=== PATIENT | male | born 1985 | race Caucasian/White ===

== ENCOUNTER 2023-05-23 15:45 | Outpatient (CLI) | payer BC, SELFPAY ==
[2023-05-23 16:41] LABS: Basophils Percent Auto 0.5 % (0.2-1.2); Eosinophils Absolute Auto 0.2 K/mm3 (0-0.3); Eosinophils Percent Auto 2.3 % (0-4.4); Hematocrit 44.2 % (42.0-52.0); Hemoglobin 14.8 g/dL (14.0-18.0); Immature Granulocyte Absolute 0.08 K/mm3 (0.00-0.031); Lymphocytes Absolute Auto 1.73 K/mm3 (0.9-3.2); Lymphocytes Percent Auto 21.3 % (18.3-44.2); Mean Corpuscular HGB Conc 33.5 g/dl (32-36); Mean Corpuscular Hemoglobin 30.3 pg (26-34); Mean Corpuscular Volume 90.6 fl (80-100); Mean Platelet Volume 11.1 fl (7.4-10.4); Monocytes Absolute Auto 0.5 K/mm3 (0.1-0.6); Monocytes Percent Auto 6.2 % (2.6-8.5); Neutrophils Absolute Auto 5.6 K/mm3 (1.3-6.7); Neutrophils Percent Auto 68.7 % (45.5-73.1); Platelet Count Result 230 k/mm3 (150-375); Red Blood Count 4.88 M/mm3 (4.6-6.20); Red Cell Distribution Width 12.8 % (11.5-14.5); White Blood Count 8.1 K/mm3 (4.5-10.0)
[2023-05-23 16:57] LABS: Alanine Aminotransferase 31 U/L (6-50); Albumin Level 4.6 g/dL (3.5-5.1); Alkaline Phosphatase 72 U/L (38-126); Anion Gap 9 mmol/L (8-16); Aspartate Amino Transferase 29 U/L (17-59); Bilirubin,Total 0.7 mg/dL (0.2-1.3); Blood Urea Nitrogen 15 mg/dL (9-20); Calcium 8.9 mg/dL (8.4-10.2); Carbon Dioxide 27 mmol/L (22-30); Chloride 101 mmol/L (98-107); Cholesterol 169 mg/dL (0-200); Estimated Glomerular Filt Rate > 60; Glucose 89 mg/dL (65-110); HDL Direct 43 mg/dL; Magnesium 1.9 mg/dL (1.6-2.3); Potassium 3.7 mmol/L (3.4-5.0); Sodium 137 mmol/L (137-145); Triglycerides 246 mg/dL (<150)
[2023-05-23 17:20] LABS: Hemoglobin A1C 4.7 % (<5.7)
[2023-05-23 17:32] LABS: LDL Cholesterol Direct 96 mg/dL
== END 2023-05-23 15:46 | disposition home or self-care (01) ==
LOC: ANHLAB 15:47
PROVIDERS: PCP Family Medicine; Visit Provider Internal Medicine Cardiovascular Disease
DX: I47.10 Supraventricular tachycardia, unspecified (principal)
CPT/HCPCS: 36415; 80053; 80061; 83036; 83735; 84443; 85025

== ENCOUNTER 2023-07-30 11:58 | Emergency (ER) | payer BC, SELFPAY ==
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
[2023-07-30 12:17] VITALS: BP 141/98; PULSE 105; RESP 18; TEMP 37.6; O2SAT 99
--- NOTE | 2023-07-30 12:28 | ED.DENTAL ---
HPI - Dental/Oral General Chief complaint: Dental/Oral Stated complaint: Face Jaw Pain Time Seen by Provider: 07/30/23 13:17 Mode of arrival: ambulatory Limitations: no limitations History of Present Illness HPI Narrative: 37-year-old male presents with concern for right jaw pain. Reports 2 days ago he was playing ball with his son when he tried to catch the ball between his face in his shoulders, reports then since then he has had pain in his right jaw, tenderness, swelling. Reports it hurts to open his mouth. He reports it feels like his lip is moving the wrong way when he tries to open his mouth. He reports he has taken ibuprofen without relief. He denies painful swallowing, dental pain. MD Complaint: tooth pain Related Data Home Medications Medication Instructions Recorded Confirmed omeprazole 40 mg capsule,delayed 40 mg PO DAILY 09/30/22 07/30/23 release Allergies Allergy/AdvReac Type Severity Reaction Status Date / Time No Known Allergies Allergy Verified 07/30/23 12:16 Review of Systems Review of Systems: CONSTITUTIONAL: Denies malaise, chills, sweats, or fever. EYES: Denies visual changes ENT: Denies rhinorrhea, congestion, sinus pain, otalgia or sore throat. Reports right jaw pain and swelling and tenderness CARDIOVASCULAR: Denies chest pain, palpitations RESPIRATORY: Denies cough or dyspnea. SKIN: Denies rash or itching. MUSCULOSKELETAL: Denies myalgia. NEUROLOGIC: Denies numbness, weakness, or headache. All systems reviewed & are unremarkable except as noted in HPI and below PMFSH Past Medical History Medical History Migraine Surgical History Surgical History H/O elbow surgery History of hernia surgery History of hip surgery Family History Family History Other Hypertension Social History Social History Smoking status: Former smoker Second hand tobacco smoke exposure: No Smoking end date: 08/04/21 Alcohol intake: current Alcohol use details: whiskey, bourbon, beer........1-10 drinks per week. 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 Gender identity (if verbalized by the patient): Male Sexual Orientation (if Verbalized by the Patient): Straight or Heterosexual Spiritual care concerns: No Agree to blood products: Yes Comments At time of signature, agree with nursing past medical, surgical, social and family history. There is no relevant family history pertinent to the presenting complaint Exam Narrative: GENERAL: Well-appearing, well-nourished, and in no acute distress. HEAD: Normocephalic, atraumatic. EYES: PERRLA, sclera clear ENT: Nares clear, turbinates pink, no rhinorrhea or epistaxis. Mucous membranes moist. TM pearly elam with sharp light reflex bilaterally; no tragal tenderness. Oropharynx without erythema or lesions. Tonsils not enlarged and without exudate. No missing teeth, broken teeth, caries. Right-sided jaw tenderness, mild edema noted, without erythema, warmth, ecchymosis, open skin NECK: Supple. No lymphadenopathy. CHEST: No respiratory distress. Speaks in full sentences. HEART: Regular rate and rhythm. SKIN: Warm, dry, no visible rash. NEURO: Alert and oriented x3. PSYCH: Normal mood and affect Course Course Emergency Course: Patie
== END 2023-07-30 14:08 | disposition home or self-care (01) ==
PROVIDERS: Emergency Provider Nurse Practitioner; PCP Family Medicine
DX: R68.84 Jaw pain (principal); Z87.891 Personal history of nicotine dependence
CPT/HCPCS: 70110; 99213; G0463

== ENCOUNTER 2024-09-20 12:33 | Observation (INO) | payer BC, SELFPAY ==
--- NOTE | ~2024-09-20 | XR_ITS ---
EXAMINATION: XR chest 2V DATE: 09/20/2024 13:29 INDICATION: Chest pain. TECHNIQUE: Frontal and lateral views of the chest were obtained. COMPARISON: None. FINDINGS: There is no pneumonia, pleural effusion, or pneumothorax. The heart size is normal. IMPRESSION: 1. No acute cardiopulmonary disease. Reviewed, dictated and finalized at location A. [facility]
--- NOTE | ~2024-09-20 | US_ITS ---
Procedure: Duplex Doppler examination of the bilateral carotids. Indication: Syncope Technique: Real time, color-flow and pulse wave Doppler examination of the bilateral carotids was performed. Findings: Cui scale ultrasonography of the right neck demonstrated no significant plaque. There was demonstrat ion of normal color-flow and Doppler waveforms within the right common, internal and external carotid arteries. The peak systolic velocities in the right common, internal and external carotid arteries w ere demonstrated to be 78 cm/sec, 97 cm/sec and 125 cm/sec respectively. The right ICA/CCA ratio was 1.2.The proximal right internal carotid artery demonstrates 0% stenosis relative to the normal distal artery lumen diameter. Cui scale sonography of the left neck demonstrated no significant plaque. There was demonstration of normal color-flow and wave forms within the left common, internal and external carotid arteries. The peak systolic velocities in the left common, internal and external carotid arteries were demonstrate d to be 150cm/sec, 88 cm/sec and 108 cm/sec respectively. The left ICA/CCA ratio was 0.9. The proxima l left internal carotid artery demonstrates 0% stenosis relative to the normal distal artery lumen di ameter. There was antegrade flow demonstrated in the bilateral vertebral arteries. Impression: No hemodynamically significant stenosis of the bilateral internal carotid arteries. Antegrade flow in the bilateral vertebral arteries. Note: The methodology used is an indirect measurement validated against a direct method (such as the NASCET criteria) that compares diameters at the stenosis to the distal ICA. Reviewed, dictated and finalized at location . RAL FREIGHT AGENT Impression: No hemodynamically significant stenosis of the bilateral internal carotid arter ies. Antegrade flow in the bilateral vertebral arteries. Note: The methodology used is an indirect measurement validated against a direct meth od (such as the NASCET criteria) that compares diameters at the stenosis to the distal ICA.
--- NOTE | ~2024-09-20 | CT_ITS ---
EXAMINATION: CT brain wo con DATE: 09/20/2024 15:00 INDICATION: Headache, lightheadedness and near syncope TECHNIQUE: Computed tomography (CT) of the head was performed without intravenous contrast. Sagittal and coronal reconstructions were performed. The mA was adjusted according to patient size. Iterative reconstruction technique was employed. The dose-length product was 605.33 mGy-cm. COMPARISON: None FINDINGS: No acute intracranial hemorrhage, acute infarction or abnormal extra axial fluid collection. Ventricl es are normal and symmetric. No mass/mass effect. The orbits, paranasal sinuses and mastoid air cells are normal. IMPRESSION: 1. Normal head CT. Reviewed, dictated and finalized at location A. AINER MAKER IMPRESSION: 1. Normal head CT.
--- NOTE | ~2024-09-20 | CT_ITS ---
EXAMINATION: CTA chest DATE: 09/20/2024 17:20 INDICATION: chest pain TECHNIQUE: Computed tomography angiography of the chest was performed with 100 mL Omnipaque-350 intra venous contrast in the arterial phase. Automated exposure control and iterative reconstruction techni que were employed. The dose-length product was 921.97 mGy-cm. COMPARISON: X-ray chest, same date. FINDINGS: CHEST: Thoracic aorta: No significant dilation or calcification. Lung parenchyma and airways: Lungs and airways are clear. Thoracic inlet, axillae and chest wall: No thyroid or soft tissue mass. No axillary lymphadenopathy. Mediastinum: No mass or lymphadenopathy. Heart and pericardium: Normal heart size. No pericardial effusion. Coronary artery calcifications: Absent. Pleura: No effusion or mass. Upper abdomen: No significant finding. Thoracic bones: No acute osseous finding in the chest. IMPRESSION: No acute thoracic process detected. Reviewed, dictated and finalized at location K. LY MANAGER
--- NOTE | ~2024-09-20 | NM_ITS ---
EXAMINATION: NM gerber stress w perfusion DATE: 09/21/2024 11:13 INDICATION: Chest pain. TECHNIQUE: Rest images were obtained following intravenous administration of 10.6 mCi Tc99m tetrofosm in (Myoview). The patient was infused intravenously with Lexiscan (regadenoson). Then, 34.6 mCi Tc99m tetrofosmin (Myoview) was administered intravenously, and stress images were obtained. Data was teresita nstructed into short axis and horizontal and vertical long axis SPECT images. Gated SPECT images were also obtained. COMPARISON: Chest CT 09/20/2024 FINDINGS: There is no definite reversible or fixed perfusion abnormality to suggest ischemia or infar ction. There is no segmental wall motion abnormality. Left ventricular ejection fraction measures 4 7%. IMPRESSION: 1. No definite ischemia or infarct. 2. Left ventricular ejection fraction measuring 47%. Reviewed, dictated and finalized at location A. [facility]
[2024-09-20 12:39] VITALS: BP 194/114; PULSE 116; RESP 15; TEMP 36.6; O2SAT 99
--- NOTE | 2024-09-20 12:47 | ECG_ITS ---
Test Date: 2024-09-20 12:50:06 Measurements Intervals [place] Rate: 117 P: 56 MO: 145 QRS: 41 QRSD: 104 T: 36 QT: 338 QTc: 473 Interpretive Statements SINUS TACHYCARDIA DELAYED PRECORDIAL R/S TRANSITION BASELINE ARTIFACT- I, II, III, AVL, AVF ABNORMAL ECG No previous ECG available for comparison Electronically Signed On 09-20-2024 13:02:01 TECHNICAL IMPLEMENTATION LEAD by Sal Kline D.O.
[2024-09-20 13:00] LABS: Basophils Percent Auto 0.4 % (0.2-1.2); Eosinophils Absolute Auto 0.1 K/mm3 (0-0.3); Hematocrit 47.6 % (42.0-52.0); Hemoglobin 16.2 g/dL (14.0-18.0); Immature Granulocyte Absolute 0.05 K/mm3 (0.00-0.031); Immature Granulocyte Percent A 0.7 % (0-0.5); Lymphocytes Percent Auto 27.5 % (18.3-44.2); Mean Corpuscular Hemoglobin 29.8 pg (26-34); Mean Corpuscular Volume 87.5 fl (80-100); Mean Platelet Volume 10.5 fl (7.4-10.4); Monocytes Absolute Auto 0.3 K/mm3 (0.1-0.6); Monocytes Percent Auto 4.6 % (2.6-8.5); Neutrophils Absolute Auto 4.6 K/mm3 (1.3-6.7); Neutrophils Percent Auto 65.8 % (45.5-73.1); Platelet Count Result 271 k/mm3 (150-375); Red Blood Count 5.44 M/mm3 (4.6-6.20); Red Cell Distribution Width 12.9 % (11.5-14.5); White Blood Count 6.9 K/mm3 (4.5-10.0)
[2024-09-20 13:10] LABS: Alanine Aminotransferase 45 U/L (6-50); Albumin Level 4.7 g/dL (3.5-5.1); Alkaline Phosphatase 97 U/L (38-126); Anion Gap 12 mmol/L (4-12); Aspartate Amino Transferase 33 U/L (17-59); Bilirubin,Total 0.8 mg/dL (0.2-1.3); Blood Urea Nitrogen 12 mg/dL (9-20); Calcium 9.7 mg/dL (8.4-10.2); Carbon Dioxide 26 mmol/L (22-30); Chloride 103 mmol/L (98-107); Estimated CRCL calculation 141 ml/min; Estimated Glomerular Filt Rate > 60; Glucose 142 mg/dL (65-110); Lipase 139 U/L (23-300); Potassium 4.4 mmol/L (3.4-5.0); Sodium 141 mmol/L (137-145)
[2024-09-20 13:14] LABS: Partial Thromboplastin Time 24.4 Seconds (22.3-36.8)
[2024-09-20 13:22] LABS: Troponin I < 0.012 ng/mL (0.000-0.034)
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
[2024-09-20 14:24] VITALS: BP 160/116; PULSE 96; RESP 15; O2SAT 98
--- OUTSIDE RECORDS SUMMARY | 2024-09-20 14:59 | XMS_ITS | Referral Summary ---
Author Organization [facility] Address [address] [place] [id number] Care Team Providers Care Talent Management Specialist Name Role Phone Lisbeth Banegas MD Primary Care Provider [phone] Sal Kline DO Unavailable [phone] Allergies No known active allergies Medications multivitamin-Ca -iron-minerals 18-0.4 mg tablet Take by mouth Active metoprolol tartrate (LOPRESSOR) 25 mg immediate release tablet Take 1 tablet (25 mg total) by mouth once Active omeprazole (PriLOSEC) 20 mg capsule Take 2 capsules (40 mg total) by mouth daily Active traMADoL (ULTRAM) 50 mg tablet Take 1 tablet (50 mg total) by mouth every 8 (eight) hours as needed for pain 20 tablet 01/17/2023 Active Active Problems No known active problems Social History Tobacco Use Types Packs/Day Years Used Date Smoking Tobacco: Never Smokeless Tobacco: Never Tobacco Cessation:Counseling Given: Not Answered AUDIT-C Answer Date Recorded Q1: How often do you have a drink containing alcohol? 4 or more times a week 01/17/2023 Q2: How many drinks containi ng alcohol do you have on a typical day when you are drinking? 5 or 6 Q3: How often do you have si x or more drinks on one occasion? Weekly 01/17/2023 Personal Safety Answer Date Recorded Have you ever been in or are you currently in a harmful physical or emotional relationship or is someone making you feel afraid or unsafe? 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 Gender Identity Not on file Sexual Orientation Not on file Last Filed Vital Signs Vital Sign Reading Time Taken Comments Blood Pressure 131/81 01/17/2023 9:30 AM CDT Pulse 73 01/17/2023 9:30 AM CDT Temperature 36.5 C (97.7 F) 01/17/2023 9:00 AM CDT Respiratory Rate 16 01/17/2023 9:30 AM CDT Oxygen Saturation 95% 01/17/2023 9:30 AM CDT Inhaled Oxygen Concentration - - Weight 107.1 kg (236 lb 1.6 oz) 01/17/2023 6:16 AM CDT Height 188 cm (6' 2 ) 01/17/2023 6:16 AM CDT Body Mass Index 30.31 01/17/2023 6:16 AM CDT Plan of Treatment Not on file Medical Devices Implanted Type Area Coat Maker Device Identifier Shelf Expiration Date Model / Serial / Lot [employer] Ventralex St Sepra Sorbaflex 1.7in [facility] Bioresorbable [id number] - [id number] Implanted:Qty: 1 on 01/17/2023 by Manpreet Darling MD at [facility] [employer] [id number] 02/29/2024 [id number] / / [id number] Insurance [facility] [employer] [facility] Care Teams Talent Management Specialist Relationship Specialty Start Date End Date Lisbeth Banegas MD PCP - General Family Medicine 10/08/22 Sal Kline DO [address] [place] [address] Referring Physician Cardiology 01/17/23
--- OUTSIDE RECORDS SUMMARY | 2024-09-20 14:59 | XMS_ITS | Clinical Summary ---
Author Organization [facility] Address [address] [place] [id number] Care Team Providers Care Tire Builder Heavy Service Name Role Phone Lisbeth Banegas MD Primary Care Provider [phone] Sal Kline DO Unavailable [phone] Allergies No known active allergies Medications multivitamin-Ca [...] Active Active Problems No known active problems Surgical History Surgery Date Site/Laterality Comments HERNIA REPAIR ELBOW SURGERY 08/04/2015 - 08/03/2016 Left HIP SURGERY Left APPENDECTOMY Medical History Medical History Date Comments GERD (gastroesophageal reflux disease) Hypertension Family History Medical History Relation Name Comments Heart disease Father Relation Name Status Comments Father Social History Tobacco Use Types Packs/Day Years [...] on file 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 Gender Identity Not on file Sexual Orientation Not on file Obstetrics History Last Filed Vital Signs Vital Sign Reading [...] 01/17/2023 6:16 AM CDT Plan of Treatment Health Maintenance Due Date Last Done Comments Depression Screening 1985 Hepatitis C Screening 1985 DTaP/Tdap/Td Vaccine (1 - Tdap) 1996 Varicella Vaccines (1 of 2 - 13+ 2-dose series) 1998 Hepatitis B Screening 2003 Regular Well Visit/Exam 18-64 2003 Influenza Vaccine (#1) 2024 HPV Vaccines Aged Out No longer eligi ble based on patient's age to complete this topic Pneumococcal vaccine <65 Aged Out No longer eligible based on patient's age to complete this topic Medical Devices Implanted Type Area Commercial Installer Device Identifier Shelf Expiration Date Model / Serial / Lot [employer] Ventralex St Sepra Sorbaflex 1.7in [place] [employer] Bio[employer]orbable [id number] - [id number] Implanted:Qty: 1 on 01/17/2023 by Manpreet Darling MD at [facility] [employer] [id number] 02/29/2024 [id number] / / [id number] Insurance Intern [place] CHOICE IN Intern [place] CHOICE IN Care Teams Tire Builder Heavy Service Relationship Specialty Start Date End Date Lisbeth Banegas MD PCP - General Family Medicine 10/08/22 Sal Kline DO [address] [facility] [address] [place] [address] Referring Physician Cardiology 01/17/23
--- OUTSIDE RECORDS SUMMARY | 2024-09-20 14:59 | XMS_ITS | Clinical Summary ---
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 09/08/2024 10:25 AM SAND BUFFER Ancillary Procedure [facility] [address] [place] [address] Yung Wray MD 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 from Last 3 Months Social History Tobacco Use Types Packs/Day Years Used Date Smoking Tobacco: Never Assessed Sex and Gender Information Value Date Recorded Sex Assigned at Not on file Legal Sex Male 12:23 PM CDT Gender Identity Not on file Sexual Orientation Not on file Plan of Treatment Health Maintenance Due Date Last Done Comments Pre-Diabetes and Diabetes Screening 1985 INFLUENZA VACCINE (#1) 2024 09/22/2007 DTAP/TDAP/TD VACCINES (2 - Td or Tdap) 03/30/2025 03/30/2015 HEPATITIS B VACCINES Completed 07/11/2006, 10/29/2005, 07/11/2004, Additional history exists HPV VACCINES Aged Out No longer eligi ble based on patient's age to complete this topic Procedures Procedure Name Priority Date/Time Associated Diagnosis Comments XR HAND 2 VW LEFT Routine 09/08/2024 11: 33 AM SAND BUFFER 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 FINDINGS: No fracture, dislocation, or other osseous abnormalities are present. The bone texture and density are normal. The articular surfaces are smooth. No lytic or blastic lesions are demonstrated. 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 FINDINGS: No fracture, dislocation, or other osseous abnormalities are present. The bone texture and density are normal. The articular surfaces are smooth. No lytic or blastic lesions are demonstrated. 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 FINDINGS: No fracture, dislocation, or other osseous abnormalities are present. The bone texture and density are normal. The articular surfaces are smooth. No lytic or blastic lesions are demonstrated. 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 FINDINGS: No fracture, dislocation, or other osseous abnormalities are present. The bone texture and density are normal. The articular surfaces are smooth. No lytic or blastic lesions are demonstrated. IMPRESSION: No acute osseous abnormality us Yugn Wray MD DIAGNOSTIC IMAGING ORDERABLES F inal Result from Last 3 Months Insurance [employer]
[2024-09-20 15:19] LABS: Magnesium 2.1 mg/dL (1.6-2.3)
[2024-09-20 15:26] LABS: D Dimer < 0.27 ug/mL (<0.48)
--- NOTE | 2024-09-20 15:58 | PC.NURSE ---
Pt. reports resolution of symptoms.
--- NOTE | 2024-09-20 16:00 | ECG_ITS ---
Test Date: 2024-09-20 16:09:29 Measurements Intervals Ball Rate: 97 P: 33 MD: 148 QRS: 18 QRSD: 101 T: 1 QT: 339 QTc: 431 Interpretive Statements SINUS RHYTHM DELAYED PRECORDIAL R/S TRANSITION BORDERLINE ST-T WAVE ABNORMALITY- INFERIOR LEADS BASELINE ARTIFACT- I, III, AVL BORDERLINE ECG Compared to ECG 09/20/2024 12:50:06 HEART RATE HAS DECREASED Electronically Signed On 09-20-2024 16:20:32 APPLIQUER ZIGZAG by Sal Kline D.O.
--- NOTE | 2024-09-20 16:07 | PC.NURSE ---
Pt. given 324mg aspirin. Unable to chart in OCT d/t chart stating Dr. Milton is in pt. chart, yet states he is out of the chart.
[2024-09-20 17:00] VITALS: BP 155/88; PULSE 85; RESP 18; O2SAT 98
--- NOTE | 2024-09-20 17:23 | PC.NURSE ---
Lab called d/t pt. troponin pending for 2 hours. Lab reports that it was a mistake on their end and should be resulting soon.
[2024-09-20 17:24] LABS: Troponin I < 0.012 ng/mL (0.000-0.034)
--- OUTSIDE RECORDS SUMMARY | 2024-09-20 17:30 | XMS_ITS | Clinical Summary ---
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 Gender Identity Not on file Sexual Orientation [...] this topic Medical Devices Implanted Type Area Career Coach Device Identifier Shelf Expiration Date Model / Serial / Lot [employer]/C R Bard Ventralex St Sepra Sorbaflex 1.7in Totz Open Bioresorbable [id number] - [id number] Implanted:Qty: 1 on 01/17/2023 by Manpreet Darling MD at [facility] [employer] [id number] 02/29/2024 [id number] / / [id number] Insurance [employer] [place] [employer] [place] Care Teams Restaurant And Bar Manager Relationship Specialty Start Date End Date Lisbeth Banegas MD PCP - General Family Medicine 10/08/22 Sal Kline DO [address] [facility] [address] [place] [address] Referring Physician Cardiology 01/17/23
--- OUTSIDE RECORDS SUMMARY | 2024-09-20 17:30 | XMS_ITS | Referral Summary ---
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 Gender Identity Not on file Sexual Orientation [...] on file Medical Devices Implanted Type Area Piledriver Carpenter Device Identifier Shelf Expiration Date Model / Serial / Lot [employer] R [employer] Ventralex St Sepra Sorbaflex 1.7in [facility] Bioresorbable [id number] - [id number] Implanted:Qty: 1 on 01/17/2023 by Manpreet Darling MD at [facility] [employer] [id number] 02/29/2024 [id number] / / [id number] Insurance [facility] [employer] [facility] Care Teams Aircraft Accessories Mechanic Relationship Specialty Start Date End Date Lisbeth Banegas MD PCP - General Family Medicine 10/08/22 Sal Kline DO [address] [facility] [address] [place] [address] Referring Physician Cardiology 01/17/23
--- OUTSIDE RECORDS SUMMARY | 2024-09-20 17:30 | XMS_ITS | Clinical Summary ---
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 09/08/2024 10:25 AM SALVAGER HELPER Ancillary Procedure [facility] [address] [place] [address] Yung Wray MD Degenerative joint disease involving [...] VW LEFT Routine 09/08/2024 11: 33 AM SALVAGER HELPER 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 XR HAND 2 VW RIGHT Routine 09/08/2024 11 :33 AM SALVAGER HELPER 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 from Last 3 Months Results * XR HAND 2 VW LEFT (09/08/2024 11:33 AM SALVAGER HELPER) Anatomical Region Laterality Modality Wrist / Hand Computed Radiogr aphy 09/08/2024 11:3 3 AM SALVAGER HELPER Impressions 09/08/2024 11:40 AM SALVAGER HELPER IMPRESSION: No acute osseous abnormality Narrative 09/08/2024 11:40 AM SALVAGER HELPER EXAM: XR HAND 2 VW LEFT DATE: [...] HAND 2 VW RIGHT (09/08/2024 11:33 AM SALVAGER HELPER) Anatomical Region Laterality Modality Wrist / Hand Computed Radiogr aphy 09/08/2024 11:3 3 AM SALVAGER HELPER Impressions 09/08/2024 11:39 AM SALVAGER HELPER IMPRESSION: No acute osseous abnormality Narrative 09/08/2024 11:39 AM SALVAGER HELPER EXAM: XR HAND 2 VW RIGHT DATE: [...]
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
--- NOTE | 2024-09-20 19:25 | ECG_ITS ---
Test Date: 2024-09-20 19:29:45 Measurements Intervals Tichnor Rate: 77 P: 41 MS: 154 QRS: 20 QRSD: 116 T: 17 QT: 382 QTc: 435 Interpretive Statements SINUS RHYTHM INTRAVENTRICULAR CONDUCTION DELAY NONSPECIFIC ST-T WAVE ABNORMALITY- INFERIOR LEADS BORDERLINE ECG Compared to ECG 09/20/2024 16:09:29 NO SIGNIFICANT CHANGE Electronically Signed On 09-20-2024 19:31:34 LABORER CHEESEMAKING by Sal Kline D.O.
[2024-09-20 20:00] LABS: Troponin I < 0.012 ng/mL (0.000-0.034)
[2024-09-20 21:30] VITALS: BP 138/80; PULSE 70; RESP 16; O2SAT 98
[2024-09-21] VITALS (9 sets, daily range): BP systolic 134–151; BP diastolic 76–95; PULSE 58–80; RESP 12–16; TEMP 36.4–36.7; O2SAT 94–100; BMI 32.6
--- NOTE | 2024-09-21 | ECHO_ITS ---
Patient Info Name: Royce Paniagua Age: 39 years : 1985 Gender: Male Ht: 74 in Wt: 253 lbs BSA: 2.48 m2 HR: 65 bpm BP: 134 / 76 mmHg Heart Rhythm: Sinus Rhythm Technical Quality: Good Exam Date: 09/21/2024 7:18 AM Exam Location: Echo Lab Patient Status: Inpatient Admit Date: 09/20/2024 Staff Ordering Physician: Sal Kline DO Captain/Check Airman: Ame Trejo RDCS Attending Provider: Evangelista Fritz MD Referring Physician: Eliud ROLDAN; Exam Type: CA echo doppler color flow Study Info Indications - PSVT Complete two-dimensional, color flow and Doppler transthoracic echocardiogram is performed. Summary 1. Complete two-dimensional, color flow and Doppler transthoracic echocardiogram is performed. 2. Left ventricular chamber dimension is mildly enlarged. 3. Left ventricular systolic function is normal, estimated at 60-65%. 4. The left ventricular diastolic function is grade II diastolic dysfunction. 5. E/e' 9 is minimally elevated. 6. Left atrial chamber dimension is mildly enlarged. Left Ventricle E/e' 9 is minimally elevated. Left ventricular chamber dimension is mildly enlarged. Left ventricular systolic function is normal, estimated at 60-65%. The left ventricular diastolic function is grade II diastolic dysfunction. Right Ventricle Right ventricular systolic function is normal and with normal TAPSE 1.9 cm. Right ventricular chamber dimension is normal. Left Atria Left atrial chamber dimension is mildly enlarged. Right Atria Right atrial chamber dimension is normal. Aortic Valve The aortic valve is trileaflet. There is no aortic valve stenosis. There is no aortic valve regurgitation. Pulmonic Valve There is no pulmonic regurgitation. Mitral Valve There is no mitral valve stenosis. There is no mitral valve regurgitation. Tricuspid Valve There is no tricuspid valve regurgitation. Pericardium/Pleural There is no pericardial effusion. Inferior Vena Cava Normal inferior vena cava with >50% collapse upon inspiration consistent with normal right atrial pressure, 5 mmHg. Aorta The aortic root size at the sinus of Valsalva is normal. Left Ventricular Outflow Tract Name Value Normal LVOT 2D LVOT Diameter 2.0 cm LVOT Doppler LVOT Peak Gradient 4 mmHg LVOT Mean Gradient 2 mmHg LVOT VTI 16 cm LVOT VTI/AV VTI Ratio 0.8 LVOT Stroke Volume 49 ml LVOT CO 4.0 l/min LVOT CI 1.6 l/min/m2 Pulmonic Valve Name Value Normal RVOT Doppler RVOT Peak Gradient 2 mmHg PV Doppler PV Peak Gradient 4 mmHg Mitral Valve Name Value Normal MV Doppler MV Decel Delta 416 cm/s2 MV PHT 50 ms MV Area (PHT) 4.4 cm2 4.0-5.0 MV Diastolic Function MV E Peak Velocity 71 cm/s MV A Peak Velocity 53 cm/s MV E/A 1.3 MV Decel Time 171 ms MV Annular TDI MV E/e' (Septal) 11.5 <=8.0 MV E/e' (Lateral) 8.0 <=8.0 MV E/e' (Average) 9.8 Tricuspid Valve Name Value Normal Estimated PAP/RSVP RA Pressure 5 mmHg <=5 Aorta Name Value Normal Ascending Aorta Ao Root Diameter (MM) 3.6 cm Ao Root Diam Index (MM) 1.4 cm/m2 Aortic Valve Name Value Normal AV Doppler AV Peak Velocity 113 cm/s AV Peak Gradient 5 mmHg AV Mean Gradient 3 mmHg AV VTI 20 cm AV Area (Cont Eq VTI) 2.4 cm2 >=3.0 AV Area (Cont Eq Scott) 2.6 cm2 AV Regurgitation 2D LVOT Area 3.1 cm2 Ventricles Name Value Normal LV Dimensions 2D/MM IVS Diastolic Thickness (2D) 0.8 cm 0.6-1.0 LVID Diastole (2D) 5.7 cm 4.2-5.8 LVIW Diastolic Thickness (2D) 0.8 cm 0.6-1.0 LVID Systole (2D) 3.6 cm 2.5-4.0 LVOT Diameter 2.0 cm LV Mass (2D Cubed) 165.64 g 88.00-224.00 LV Mass Index (2D Cubed) 67 g/m2 49-115 Relative Wall Thickness (2D) 0.28 LV Fractional Shortening/Ejection Fraction 2D/MM LV Fractional Shortening (2D) 36 % 25-43 LV EF (2D Teicholz) 65 % 52-72 LV Diastolic Volume (4C MOD) 121 ml LV EF (4C MOD) 65 % LV Diastolic Volume (2C MOD) 83 ml LV EF (2C MOD) 63 % LV Diastolic Volume (BP MOD) 101 ml 62-150 LV Diastolic Volume Index (BP MOD) 41 ml/m2 34-74 LV Systolic Volume (BP MOD) 36 ml 21-61 LV Systolic Volume Index (BP MOD) 15 ml/m2 11-31 LV EF (BP MOD) 64 % 52-72 LV Diastolic Length (4C) 8.0 cm LV Systolic Length (4C) 6.3 cm LV Stroke Volume (4C MOD) 80 ml Atria Name Value Normal LA Dimensions LA Dimension (MM) 5.4 cm 3.0-4.1 LA Volume (4C A-L) 61 ml LA Volume (BP A-L) 57 ml RA Dimensions RA Area (4C) 14.0 cm2 <=18.0 Report Signatures
--- NOTE | 2024-09-21 01:07 | ADMGEN ---
This patient, Royce Paniagua, was admitted to IMU Room 206-01. Patient/family oriented to hospital policies and general routines including ID bracelet, bed and alarms, visiting hours, pain management, procedures, bathroom and other care routines, personal items, smoking policy, room service/diet, and visiting hours. Information on how to activate the Rapid Response Team has been discussed. Patient/Family are encouraged to report perceived risks to care and to ask questions if they do not understand what they are told or what they should do.
[2024-09-21 05:34] LABS: Anion Gap 13 mmol/L (4-12); Blood Urea Nitrogen 16 mg/dL (9-20); Calcium 9.4 mg/dL (8.4-10.2); Carbon Dioxide 25 mmol/L (22-30); Chloride 103 mmol/L (98-107); Cholesterol 169 mg/dL (0-200); Estimated CRCL calculation 157 ml/min; Estimated Glomerular Filt Rate > 60; Glucose 106 mg/dL (65-110); HDL Direct 35 mg/dL; Magnesium 2.1 mg/dL (1.6-2.3); Potassium 4.2 mmol/L (3.4-5.0); Sodium 141 mmol/L (137-145); Triglycerides 411 mg/dL (<150)
[2024-09-21 05:44] LABS: LDL Cholesterol Direct 64 mg/dL
[2024-09-21 06:53] LABS: Free T4 Free Thyroxine Reflex 0.94 ng/dL (0.78-2.19)
[2024-09-21 07:44] LABS: Total Triiodothyronine (T3) 1.48 NG/ML (0.97-1.69)
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
--- NOTE | 2024-09-21 08:00 | EST_ITS ---
Patient Info Name: Royce Paniagua Age: 39 years : 1985 Gender: Male Ht: 74 in Wt: 253 lbs BSA: 2.48 m2 HR: 70 bpm BP: 147 / 96 mmHg Exam Date: 09/21/2024 10:01 AM Exam Location: Echo Lab Patient Status: Inpatient Admit Date: 09/20/2024 Staff Ordering Physician: Sal Kline DO Attending Provider: Evangelista Fritz MD Exercise Technologist: Ame Trejo RDCS Exercise Physician: Sal Kline DO Exam Type: CA stress gerber w NM Study Info A regadenoson stress test was performed. Summary 1. 1. Negative lexiscan stress test for ischemic ST changes by ECG criteria. 2. 2. Baseline hypertension. 3. 3. Nuclear scan to follow and will be reported separately. Please correlate with it. 4. 4. Patient informed of the above results. Protocol: Lexiscan Stress ECG Details Stage: REST Duration (min): 1 min : 9 sec HR (bpm): 72 SBP (mmHg): 147 DBP (mmHg): 96 Stage: REST Duration (min): 6 min : 1 sec HR (bpm): 82 SBP (mmHg): 147 DBP (mmHg): 96 Stage: STAGE 1 Duration (min): 1 min : 0 sec HR (bpm): 141 SBP (mmHg): 162 DBP (mmHg): 101 Stage: RECOVERY Duration (min): 1 min : 0 sec HR (bpm): 113 SBP (mmHg): 162 DBP (mmHg): 101 Stage: RECOVERY Duration (min): 2 min : 0 sec HR (bpm): 101 SBP (mmHg): 162 DBP (mmHg): 101 Stage: RECOVERY Duration (min): 3 min : 0 sec HR (bpm): 94 SBP (mmHg): 154 DBP (mmHg): 97 Stage: RECOVERY Duration (min): 3 min : 4 sec HR (bpm): 92 SBP (mmHg): 154 DBP (mmHg): 97 Rest HR: 82 bpm Peak HR: 141 bpm Rest Sys BP: 147 mmHg Peak Sys BP: 162 mmHg Max Pred HR: 181 bpm % Max Pred HR: 78 % Target HR: 154 bpm Max RPP: 22,842 bpm*mmHg Termination Reason: Completed protocol Cardiac Symptoms: Shortness of breath Total Time: 1 min : 0 sec Rest Vernon BP: 96 mmHg Peak Vernon BP: 101 mmHg Total Dose: 0.4 mg Resting ECG Sinus rhythm. Stress ECG No ST changes. Arrhythmias None. Report Signatures
[2024-09-21] MEDS: dilTIAZem HCL CD 240 MG CAP.24HR PO (10:58)
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
== END 2024-09-21 13:10 | disposition home or self-care (01) ==
LOC: ANHED 18:06 → ANHIMU 09-21 12:30
PROVIDERS: Physician Assistant; Admitting Provider General Practice; Emergency Provider Emergency Medicine; PCP Family Medicine; Visit Provider Internal Medicine
DX: I47.10 Supraventricular tachycardia, unspecified (principal); R55 Syncope and collapse; I16.0 Hypertensive urgency; I10 Essential (primary) hypertension; R29.818 Other symptoms and signs involving the nervous system; G43.909 Migraine, unspecified, not intractable, without status migrainosus; R73.09 Other abnormal glucose; Z78.9 Other specified health status; Z87.891 Personal history of nicotine dependence
CPT/HCPCS: 36415; 70450; 71046; 71275; 78452; 80048; 80053; 80061; 83036; 83690; 83735; 84439; 84443; 84480; 84484; 85025; 85380; 85610; 85730; 93005; 93017; 93306; 93880; 96374; 96375; 99285; A9270; A9502; G0378; J2785; Q9967

== ENCOUNTER 2024-10-27 08:00 | Outpatient (CLI) | payer BC, SELFPAY ==
--- OUTSIDE RECORDS SUMMARY | 2024-10-27 08:09 | XMS_ITS | Referral Summary ---
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 Care Teams Oral Surgery Technician Relationship Specialty Start Date End Date Lisbeth Banegas MD PCP - General Family Medicine 10/08/22 Sal Kline DO [address] [place] [address] Referring Physician Cardiology 01/17/23
--- OUTSIDE RECORDS SUMMARY | 2024-10-27 08:09 | XMS_ITS | Clinical Summary ---
Author Organization [place] [address] Address [address] [place] [address] Phone Care Team Providers Care Toolroom Helper Name Role Phone Unavailable Primary Care Provider Unavailabl e Encounters Date Type Department Care Team Description 10/20/2024 External Device Data [facility]CTION Provider, Abstract 09/28/2024 External Device Data [facility] Provider, Abstract 09/14/2024 External Device Data [facility] Provider, Abstract 09/14/2024 External Device Data [facility] Provider, Abstract 09/14/2024 External Device Data [facility] Provider, Abstract 09/08/2024 10:30 AM FRUIT PEELER [facility] [address] [place] [address] Yung Wray MD 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 09/08/2024 10:25 AM FRUIT PEELER Ancillary Procedure [facility] [address] [place] [address] Yung Wray MD Degenerative joint disease involving [...] VW LEFT Routine 09/08/2024 11: 33 AM FRUIT PEELER 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 XR HAND 2 VW RIGHT Routine 09/08/2024 11 :33 AM FRUIT PEELER 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 from Last 3 Months Results * XR HAND 2 VW LEFT (09/08/2024 11:33 AM FRUIT PEELER) Anatomical Region Laterality Modality Wrist / Hand Computed Radiogr aphy 09/08/2024 11:3 3 AM FRUIT PEELER Impressions 09/08/2024 11:40 AM FRUIT PEELER IMPRESSION: No acute osseous abnormality Narrative 09/08/2024 11:40 AM FRUIT PEELER EXAM: XR HAND 2 VW LEFT DATE: [...] HAND 2 VW RIGHT (09/08/2024 11:33 AM FRUIT PEELER) Anatomical Region Laterality Modality Wrist / Hand Computed Radiogr aphy 09/08/2024 11:3 3 AM FRUIT PEELER Impressions 09/08/2024 11:39 AM FRUIT PEELER IMPRESSION: No acute osseous abnormality Narrative 09/08/2024 11:39 AM FRUIT PEELER EXAM: XR HAND 2 VW RIGHT DATE: [...] are demonstrated. IMPRESSION: No acute osseous abnormality Yung Wray MD DIAGNOSTIC IMAGING ORDERABLES F inal Result from Last 3 Months Insurance [employer]
--- OUTSIDE RECORDS SUMMARY | 2024-10-27 08:09 | XMS_ITS | Clinical Summary ---
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 Gender Identity Not on file Sexual Orientation [...] this topic Medical Devices Implanted Type Area Riveter Automobile Brakes Device Identifier Shelf Expiration Date Model / Serial / Lot [employer]/C R Bard Ventralex St Sepra Sorbaflex 1.7in [place] Open Bioresorbable [id number] - [id number] Implanted:Qty: 1 on 01/17/2023 by Manpreet Darling MD at [facility] [employer] [id number] 02/29/2024 [id number] / / [id number] Insurance [employer] [place] [employer] Care Teams Linux System Administrator Relationship Specialty Start Date End Date Lisbeth Banegas MD PCP - General Family Medicine 10/08/22 Sal Kline DO [address] [facility] [address] [place] [address] Referring Physician Cardiology 01/17/23
[2024-11-01 14:48] VITALS: BMI 32.1
--- NOTE | 2024-11-01 14:48 | P.SLEEP_ITS ---
Sleep Study - Home Unattended Date of Study: 10/27/24 Ordering Provider: Sal Kline DO Interpreting Provider: Ariadne Barrios DO Home Sleep Study Type: Watch PAT Height: 1.88 m Weight: 113.398 kg Body Mass Index: 32.1 Neck Circumference (inches): 17.5 [place]: 7 Reason for Sleep Study snoring, trouble staying asleep Sleep History The patient is a 39-year-old male that had a sleep study ordered by his cardiol ogist for evaluation of sleep apnea. The patient admits to loud snoring, interruptions in breathing while asleep and trouble maintaining sleep. The patient does choke or gasp at night. He denies having trouble breathing on his back. He denies morning headaches. He does have a dry or sore mouth / throat in the morning. He does have nocturnal heartburn. He denies nocturia. He denies having difficulty falling asleep. He denies having difficulty returning to sleep if he wakes up throughout the night. He denies any hypnotic or sedative use. He denies feeling anxious about sleep. He does feel tired or sleepy during the day. He does feel tired in the morning. He denies having the urge to fall asleep during the day. He denies feeling drowsy while driving. He denies sleep paralysis, cataplexy and hypnagogic/ hypnopompic hallucinations. He does clench or grind his teeth. He denies kicking or jerking his legs excessively. He does have a restless feeling in his legs but it does not cause an urge to move his legs. The restless feeling does get better with activity and it does get worse with rest. The restless feeling only occurs in the evening or at night time. It does not cause a disturbance in his sleep. He goes to bed at 10:00 p.m. on work days and at midnight on his days off. It takes him 15 minutes to fall asleep. He gets 8 hours of sleep on work days and 9 hours on his days off. His sleep is somewhat restorative on his days off. He denies taking any planned naps. He denies dream enactment behavior. He denies sleep walking. He denies consuming any caffeinated beverages throughout the day. He denies tobacco use. He consumes more than 3 alcoholic beverages at least 3-4 nights per week. He denies exercising on a regular basis. [facility] Past Medical History Medical History Heavy drinker Paroxysmal supraventricular tachycardia Migraine Surgical History Surgical History History of elbow surgery History of hernia surgery History of hip surgery Family History Family History Other Hypertension Social History Social History Social History: Surrogate medical decision maker: Edilma Rosenthalzad, spouse ([phone]). Code status: Full code. Smoking status: Former smoker Second hand tobacco smoke exposure: No Smoking end date: 08/04/21 Alcohol intake: current Drinks per week: 20 Alcohol use details: average of 15 drinks on both Friday and Friday nights Substance use: never Substance use type: does not use Do You Feel Safe in your Home?: Yes Lack of Transportation: No Lack of Food: Never True Current Housing: I Have Housing Concerned About Future Housing: No Difficulty Paying Gas/Electric Bills: No Difficulty Paying for Meds: No Currently Unemployed: No Education: Trade/Vocational Certificate Difficulty w/ Childcare or Family Care: No Living arrangements: with family Additional living arrangements comments: Lives with spouse and children in [facility]. 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 care concerns: No Agree to blood products: Yes Medications Home Medications ?Medication ?Instructions ?Recorded ?Confirmed ?Type omeprazole 40 mg capsule,delayed 40 mg PO DAILY 09/30/22 10/14/24 History release multivitamin 1 tablet PO DAILY 09/21/24 10/14/24 History diltiazem HCl 360 mg 360 mg PO DAILY #30 caps 10/14/24 10/14/24 Rx capsule,extended release 24 hr (Cardizem CD) omega 6-oey-sfw-fish oil 1,000 mg 1 cap PO BID 10/14/24 10/14/24 History (120 mg-180 mg) capsule (Fish Oil) albuterol sulfate 90 mcg/actuation 2 puff inhalation QID PRN 11/01/24 Rx aerosol inhaler (Ventolin HFA) shortness of breath or wheezing #6.7 grams prednisone 50 mg tablet 50 mg PO DAILY 5 days #5 tabs 11/01/24 Rx Sleep Procedure The sleep study was completed using [employer] a technically adequate device with seven channels: peripheral arterial tone, actigraphy, body position, snore, respiratory movement, pulse oximetry, sleep staging, and heart rate. Prior to using the device, the patient received verbal and written instructions for its application and was provided with the help desk phone number for additional telephonic instruction with 24-hour availability of qualified personnel to answer questions. The study was scored using AASM guidelines. Sleep Architecture The total recording time is 7 hrs, 3 min. The total sleep time is 4 hrs, 30 min. Sleep latency is 37 minutes. REM latency is 168 minutes. The patient had 17 episodes of waking. Sleep architecture shows 21.1% deep sleep, 58.4% light sleep, and (as % Total Sleep Time) showed NREM (Light 58.4%; Deep 21.1%), and a 20.5% stage REM. The patient spent 18.8% of total sleep time in the supine position. Sleep efficiency was 63.83. Respiratory Analysis The overall AHI (pAHI 3%:) is 11.0. The central AHI is 0.5. The AHI was 10.2 in NREM and 14.2 in REM sleep. The AHI was 18.1 in Supine and 9.4 in Non-supine sleep. Percent of Jose L Rosen respirations is 0.0. Oximetry Data The oxygen desaturation index (CHRISTINA 4%:) is 2.2. The mean saturation is 95%, and the lowest saturation is 89%. Time spent with saturation < 88% is 0.0 minutes. Snoring Profile Snoring average intensity is 41 dB. The patient snored above 45 decibels for 19.1 minutes, 7.1% of sleep time. Cardiac Profile The average pulse rate is 69 beats per minutes. The lowest pulse rate is 53 bpm. The highest pulse rate reported is 120 bpm. Atrial fibrillation was not detected. Premature beats occur <0.1 per minute. Assessment and Plan Assessment and Plan (1) BERTHA (obstructive sleep apnea): Code(s): G47.33 - Obstructive sleep apnea (adult) (pediatric) Status: Acute Assessment and Plan: The patient had an overall AHI of 11.0 with desaturation down to 89%. This is consistent with mild sleep apnea. Due to the patient's cardiac arrhythmias, he qualifies for treatment. I recommend that the patient be prescribed Resmed AutoPAP 5-15 cm H2O, CPAP mask/filters/tubing and heated humidity. This should be used with all episodes of sleep.? Compliance should be reviewed within 31-90 days of starting therapy for usage greater than 4 hours per night greater than 70% of the nights. The patient should be asked about symptoms such as?excessive daytime sleepiness, quality of sleep, decreased nocturia, increased?mental functioning such as memory, mood, and concentration. Data The data obtained during this sleep study is adequate for interpretation. Certification This sleep study has been reviewed by a board certified sleep medicine physician.
== END 2024-10-28 11:41 | disposition home or self-care (01) ==
LOC: ANHCSM 08:01
PROVIDERS: PCP Family Medicine; Visit Provider Internal Medicine Cardiovascular Disease
DX: G47.10 Hypersomnia, unspecified (principal); G47.33 Obstructive sleep apnea (adult) (pediatric)
CPT/HCPCS: 95800

== ENCOUNTER 2024-11-01 12:48 | Emergency (ER) | payer BC, SELFPAY ==
--- NOTE | ~2024-11-01 | XR_ITS ---
EXAMINATION: XR chest 2V 11/01/2024 13:10 INDICATION: Cough and congestion PROCEDURE: 2 view chest COMPARISON: 09/20/2024 FINDINGS: The lungs are clear. The cardiomediastinal silhouette is within normal limits. There are no pleural effusions. There is no pneumothorax suspected. IMPRESSION: 1: NO ACUTE CARDIOPULMONARY DISEASE. Reviewed, dictated and finalized at location A.
--- NOTE | 2024-11-01 12:50 | ED_ITS ---
HPI - URI/Sore Throat General Chief Complaint: Upper Respiratory Infection Stated Complaint: Bronchitis Symptoms Source: patient and RN notes reviewed Mode of arrival: ambulatory Limitations: no limitations History of Present Illness HPI Narrative: Patient is a 39-year-old male who presents to the [facility] with complaints of ongoing cough for the past week. He endorses a frequent productive cough with yellow sputum. States that he has also been experiencing chest congestion and intermittent shortness of breath. Denies chest pain. Denies sore throat or nasal congestion. Denies known fevers. Unsure of any known sick contacts. Related Data Home Medications ?Medication ?Instructions ?Recorded ?Confirmed ?Last Taken ?Type omeprazole 40 mg capsule,delayed 40 mg PO DAILY 09/30/22 10/14/24 Unknown History release multivitamin 1 tablet PO DAILY 09/21/24 10/14/24 09/20/24 History omega 0-kmx-lyd-fish oil 1,000 mg 1 cap PO BID 10/14/24 10/14/24 Unknown History (120 mg-180 mg) capsule (Fish Oil) Allergies Allergy/AdvReac Type Severity Reaction Status Date / Time No Known Allergies Allergy Verified 11/01/24 13:02 Review of Systems Review of Systems: CONSTITUTIONAL: Denies fever, chills, or sweats. EYES: Denies visual changes, redness, or discharge. ENT: Denies otalgia and sore throat CARDIOVASCULAR: Denies chest pain, palpitations, or edema. RESPIRATORY: Reports cough and dyspnea. GASTROINTESTINAL: Denies abdominal pain, nausea, vomiting, or diarrhea. GENITOURINARY: Denies dysuria or hematuria. SKIN: Denies rash or itching. MUSCULOSKELETAL: Denies back pain, joint pain, or myalgia. NEUROLOGIC: Denies headache, numbness, or weakness. Pertinent positives per HPI. ON LICENSE OF [facility] Past Medical History Medical History Heavy drinker Paroxysmal supraventricular tachycardia Migraine Surgical History Surgical History History of elbow surgery History of hernia surgery History of hip surgery Family History Family History Other Hypertension Social History Social History (Reviewed 11/01/24 @ 12:51 by BERNA Marrufo Social History: Surrogate medical decision maker: Edilma Paniagua, spouse ([phone]). Code status: Full code. Smoking status: Former smoker Second hand tobacco smoke exposure: No Smoking end date: 08/04/21 Alcohol intake: current Drinks per week: 20 Alcohol use details: average of 15 drinks on both Friday and Friday nights Substance use: never Substance use type: does not use Do You Feel Safe in your Home?: Yes Lack of Transportation: No Lack of Food: Never True Current Housing: I Have Housing Concerned About Future Housing: No Difficulty Paying Gas/Electric Bills: No Difficulty Paying for Meds: No Currently Unemployed: No Education: Trade/Vocational Certificate Difficulty w/ Childcare or Family Care: No Living arrangements: with family Additional living arrangements comments: Lives with spouse and children in [place]. 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 Spiritual care concerns: No Agree to blood products: Yes Comments At the time of my signature, I reviewed and agree with the nursing past medical, surgical, social, and family history. There is no relevant family history pertinent to the patient complaint. Exam Narrative: GENERAL: This is a well-nourished, well-developed patient, in no apparent distress. HEAD: normocephalic, atraumatic. EYES: Sclera clear/white. Vision is grossly intact. EARS: External ears normal. Hearing grossly intact. NOSE: External nose normal with no obvious nasal discharge, nares without redness, no rhinorrhea. THROAT: Mucous membranes moist, posterior pharynx clear. NECK: Neck supple, non-tender without lymphadenopathy, masses or thyromegaly. CARDIOVASCULAR: Regular rate and rhythm without murmurs, gallops, or rubs. RESPIRATORY: Clear to auscultation. Breath sounds equal bilaterally. No wheezes, rales, or rhonchi. GASTROINTESTINAL: Abdomen soft, non-tender, nondistended. Bowel sounds are active. No hepato-splenomegaly, or palpable masses. No guarding. SKIN: warm, intact with no suspicious lesions or rash, good texture and turgor. NEURO: awake, alert, and oriented to person, place and time. There were no obvious focal neurologic abnormalities. Course Course Level of Care: Express Care Visit Vital Signs Vital signs: Vital Signs Temperature 98.4 F 11/01/24 12:59 Pulse Rate 93 11/01/24 12:59 Respiratory Rate 16 11/01/24 12:59 Blood Pressure 154/115 H 11/01/24 12:59 Pulse Oximetry 99 11/01/24 12:59 Temperature 98.4 F 11/01/24 12:59 Pulse Rate 93 11/01/24 12:59 Respiratory Rate 16 11/01/24 12:59 Blood Pressure 154/115 H 11/01/24 12:59 Pulse Oximetry 99 11/01/24 12:59 Oxygen Delivery Room Air 11/01/24 13:00 Reviewed MDM - URI/Sore Throat MDM Narrative Medical decision making narrative: Take steroids as directed. May use the inhaler every 4-6 hours as needed for coughing. Increase fluids at home. Avoid any and all smoke. May use a humidifier in the bedroom. Increase your Vitamin C. Follow-up with personal physician in 2-5 days. Differential Diagnosis Differential diagnosis: Likely upper respiratory infection, viral infection and bronchitis Imaging Data Attestation: I personally reviewed and interpreted this imaging study as follows: Radiologist's impression: Close Chest X-Ray (Signed) Forest Gayle - 11/01/24 Launch?[facility] [address] [place] [address] XRay Report Signed Patient: Royce Paniagua : 1985 MR#: [id number] Age: 39 Acct:[id number] Loc: [facility] ADM Date: 11/01/24Attending Dr: Ordering Physician: Chely Diaz APRN Date of Service: 11/01/24 Procedure(s): XR chest 2V Accession Number(s): [id number] cc: Chely Diaz APRN; COMPOSITION FLOOR LAYER PHYSICIAN~ EXAMINATION: XR chest 2V 11/01/2024 13:10 INDICATION: Cough and congestion PROCEDURE: 2 view chest COMPARISON: 09/20/2024 FINDINGS: The lungs are clear. The cardiomediastinal silhouette is within normal limits. There are no pleural effusions. There is no pneumothorax suspected. IMPRESSION: 1: NO ACUTE CARDIOPULMONARY DISEASE. Reviewed, dictated and finalized at location A. Please be advised this is a medical document. It is intended for dyoy-em-zvsu communication. It is written in medical language and may contain unfamiliar a bbreviations or verbiage. Medical documents are intended to carry relevant information, facts as evident, and the clinical opinion of the practitioner at the time of the encounter. This report may have been done utilizing a voice recognition system. Attempts have been made to correct errors. However, there may be uncorrected grammatical, spelling, and recognition errors present. The file time of this note does not necessarily represent the time of service. Dictated By: Forest Gayle MD 11/01/24 1314 Signed By: <Electronically signed by Forest Gayle MD in OV> 11/01/24 1315 Critical Care Time Critical Care Time Critical Care Time: No Discharge Plan Discharge Clinical Impression: Acute viral bronchitis Patient Disposition: Home, Self-Care Condition: Stable Instructions: Acute Bronchitis (ED) Additional Instructions: Take steroids as directed. May use the inhaler every 4-6 hours as needed for coughing. Increase fluids at home. Avoid any and all smoke. May use a humid ifier in the bedroom. Increase your Vitamin C. Follow-up with personal physician in 2-5 days. Patient Language: Bengali Prescriptions: New prednisone 50 mg tablet 50 mg PO DAILY 5 Days Qty: 5 0RF albuterol sulfate [Ventolin HFA] 90 mcg/actuation HFA aerosol inhaler 2 puff inhalation QID PRN (Reason: shortness of breath or wheezing) Qty: 6.7 0RF No Action omeprazole 40 mg capsule,delayed release(DR/EC) 40 mg PO DAILY omega 7-yot-vxc-fish oil [Fish Oil] 1,000 (120-180) mg capsule 1 cap PO BID diltiazem HCl [Cardizem CD] 360 mg capsule,extended release 24hr 360 mg PO DAILY Qty: 30 5RF multivitamin Tablet 1 tablet PO DAILY Follow-up/Referrals: PHYSICIAN,COMPOSITION FLOOR LAYER [Primary Care Provider] - Time of Disposition: 13:22
[2024-11-01 12:59] VITALS: BP 154/115; PULSE 93; RESP 16; TEMP 36.9; O2SAT 99
== END 2024-11-01 13:23 | disposition home or self-care (01) ==
PROVIDERS: Emergency Provider Nurse Practitioner
DX: J20.8 Acute bronchitis due to other specified organisms (principal); Z87.891 Personal history of nicotine dependence
CPT/HCPCS: 71046; 99213; G0463

== ENCOUNTER 2025-04-19 09:05 | Emergency (ER) | payer BC, SELFPAY ==
[2025-04-19 09:13] VITALS: BP 160/105; PULSE 79; RESP 16; TEMP 36.4; O2SAT 98
--- NOTE | 2025-04-19 09:37 | ED.EAR ---
HPI - Ear Problem General Chief complaint: Ear Stated complaint: Ear Pain Time Seen by Provider: 04/19/25 09:20 Source: patient and RN notes reviewed Mode of arrival: ambulatory Limitations: no limitations History of Present Illness HPI Narrative: 39-year-old male presents [facility] complaining of left ear pain last week. Patient's is still as doctor in the [place] week ago in the said there was fluid behind his ear. Today patient says he woke up with congestion, runny nose, sore throat, cough. Patient denies any chest pain, difficulty breathing, nausea vomiting, diarrhea, or any other symptoms. Patient has not tried anything [id number] to help with symptoms. Patient has a history of hypertension, his blood pressure is elevated today at the [facility] he states he just took his blood pressure pills before he arrived. Related Data Home Medications ?Medication ?Instructions ?Recorded ?Confirmed ?Last Taken ?Type omeprazole 40 mg capsule,delayed 40 mg PO DAILY 09/30/22 12/31/24 Unknown History release omega 2-jel-lsa-fish oil 1,000 mg 1 cap PO BID 10/14/24 12/31/24 Unknown History (120 mg-180 mg) capsule (Fish Oil) Allergies Allergy/AdvReac Type Severity Reaction Status Date / Time No Known Allergies Allergy Verified 04/19/25 09:08 Review of Systems Review of Systems: CONSTITUTIONAL: Denies fever, chills, body aches, or sweats. EYES: Denies visual changes, redness, or discharge. ENT: Positive for rhinorrhea, congestion, sore throat, or otalgia. CARDIOVASCULAR: Denies chest pain, palpitations, or edema. RESPIRATORY: Positive for cough. Negative for dyspnea. GASTROINTESTINAL: Denies abdominal pain, nausea, vomiting, or diarrhea. GENITOURINARY: Denies dysuria or hematuria. SKIN: Denies rash or itching. MUSCULOSKELETAL: Denies back pain, joint pain, or myalgia. NEUROLOGIC: Denies headache, numbness, or weakness. PSYCHIATRIC: Denies anxiety or depression. All other systems reviewed are negative, except as documented in HPI. [facility] Past Medical History Medical History Heavy drinker Paroxysmal supraventricular tachycardia Migraine Surgical History Surgical History History of elbow surgery History of hernia surgery History of hip surgery Family History Family History Other Hypertension Social History Social History Social History: Surrogate medical decision maker: Edilma Paniagua, spouse ([phone]). Code status: Full code. Smoking status: Former smoker Second hand tobacco smoke exposure: No Smoking end date: 08/04/21 Alcohol intake: current Drinks per week: 20 Alcohol use details: average of 15 drinks on both Friday and Friday nights Substance use: never Substance use type: does not use Do You Feel Safe in your Home?: Yes Lack of Transportation: No Lack of Food: Never True Current Housing: I Have Housing Concerned About Future Housing: No Difficulty Paying Gas/Electric Bills: No Difficulty Paying for Meds: No Currently Unemployed: No Education: Trade/Vocational Certificate Difficulty w/ Childcare or Family Care: No Living arrangements: with family Additional living arrangements comments: Lives with spouse and children in [place]. 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 Spiritual care concerns: No Agree to blood products: Yes Comments At the time of my signature, I reviewed and agree with the nursing past medical, surgical, social, and family history. There is no relevant family history pertinent to the patient complaint. Exam Narrative: GENERAL: This is a well-nourished, well-developed adult, in no apparent distress. They are non ill-appearing, nontoxic appearing. HEAD: normocephalic, atraumatic. EYES: Sclera clear/white. Vision is grossly intact. Conjunctiva normal bilaterally. Extraocular movements intact. EARS: External ears normal, auditory canals clear and without drainage, right TMs without erythema or perforation. Left TM erythematous with suppuration, no perforation. Hearing grossly intact. NOSE: External nose normal with no obvious nasal discharge, nasal turbinates erythematous with exudate, no rhinorrhea. THROAT: Mucous membranes moist, posterior pharynx boggy without erythema no exudate. Uvula is midline. Postnasal drip present. NECK: Neck supple, non-tender without lymphadenopathy, masses or thyromegaly. CARDIOVASCULAR: Regular rate and rhythm without murmurs, gallops, or rubs. RESPIRATORY: Clear to auscultation. Breath sounds equal bilaterally. No wheezes, rales, or rhonchi. SKIN: warm, Dry, intact with no suspicious lesions or rash, good texture and turgor. NEURO: awake, alert, and oriented to person, place and time. There were no obvious focal neurologic abnormalities. EXTREMITIES: No joint tenderness, effusion, or edema noted. BACK: Nontender without deformity. Course Course Emergency Course: Portions of this record may have been created with voice recognition software Level of Care: [facility] Visit Vital Signs Vital signs: Vital Signs Temperature 97.6 F 04/19/25 09:13 Pulse Rate 79 04/19/25 09:13 Respiratory Rate 16 04/19/25 09:13 Blood Pressure 160/105 H 04/19/25 09:13 Pulse Oximetry 98 04/19/25 09:13 Temperature 97.6 F 04/19/25 09:13 Pulse Rate 79 04/19/25 09:13 Respiratory Rate 16 04/19/25 09:13 Blood Pressure 160/105 H 04/19/25 09:13 Pulse Oximetry 98 04/19/25 09:13 Medical Decision Making MDM Narrative Medical decision making narrative: Appears patient has left-sided otitis media. She may have on underlying upper respiratory viral illness giving his new symptoms are starting today. Will treat him with amoxicillin. Discussed physical exam findings. Advised supportive measures and signs/symptoms to go to the ER. Pt is appropriate for outpt treatment and f/u. Differential Diagnosis Differential Diagnosis: Upper respiratory infection, viral infection, pharyngitis, otitis media, otitis externa Vital Signs Vital Signs: Vital Signs Temperature 97.6 F 04/19/25 09:13 Pulse Rate 79 04/19/25 09:13 Respiratory Rate 16 04/19/25 09:13 Blood Pressure 160/105 H 04/19/25 09:13 Pulse Oximetry 98 04/19/25 09:13 Temperature 97.6 F 04/19/25 09:13 Pulse Rate 79 04/19/25 09:13 Respiratory Rate 16 04/19/25 09:13 Blood Pressure 160/105 H 04/19/25 09:13 Pulse Oximetry 98 04/19/25 09:13 Discharge Plan Discharge Clinical Impression: Otitis media Qualifiers: Otitis media type: suppurative Chronicity: acute Laterality: left Recurrence: non-recurrent Spontaneous tympanic membrane rupture: without spontaneous rupture Qualified Code(s): H66.002 - Acute suppurative otitis media without spontaneous rupture of ear drum, left ear Upper respiratory infection Qualifiers: URI type: unspecified viral URI Qualified Code(s): J06.9 - Acute upper respiratory infection, unspecified Patient Disposition: Home Condition: Stable Instructions: Antibiotic Form, Ear Infection (ED) Additional Instructions: Take antibiotics as directed. Recommend antihistamine Zyrtec or Claritin for sinus congestion, follow instructions on the bottle. Flonase nasal spray, to spray in each nostril once daily until symptoms improve Symptomatic treatment includes: rest, fluids, and increase humidity of the air at home. You may take ibuprofen 600 mg to 800 mg every 6-8 hours. Do not exceed more than 800 mg of ibuprofen per dose. Do not exceed more than 3200 mg ibuprofen in a day. You may take up to 1000 mg Tylenol every 6-8 hours. Do not exceed 1000 mg per dose, do exceed more than 4000 mg of Tylenol in a day. Please schedule a follow-up visit with your personal physician for further evaluation and treatment within 3-5days. Go to the ER if he developed nausea, vomiting, chest pains, difficulty breathing, worsening symptoms, or any serious concerns. Patient Language: Croatian Prescriptions: New amoxicillin 875 mg tablet 875 mg PO Q12H 7 Days Qty: 14 0RF No Action omeprazole 40 mg capsule,delayed release(DR/EC) 40 mg PO DAILY omega 3-lqa-ccv-fish oil [Fish Oil] 1,000 (120-180) mg capsule 1 cap PO BID losartan 50 mg tablet 50 mg PO DAILY Qty: 30 5RF Follow-up/Referrals: PHYSICIAN,CAR SHAGGER [Primary Care Provider, Internal Medicine] Time of Disposition: 09:33
== END 2025-04-19 09:36 | disposition home or self-care (01) ==
DX: H66.002 Acute suppurative otitis media without spontaneous rupture of ear drum, left ear (principal); J06.9 Acute upper respiratory infection, unspecified; I10 Essential (primary) hypertension; Z87.891 Personal history of nicotine dependence
CPT/HCPCS: 99213; G0463

== ENCOUNTER 2025-07-15 13:08 | Emergency (ER) | payer BC, SELFPAY ==
[2025-07-15 13:11] VITALS: BP 147/102; PULSE 102; RESP 20; TEMP 36.7; O2SAT 97
--- NOTE | 2025-07-15 13:16 | ED_ITS ---
HPI - General Adult General Chief complaint: Upper Respiratory Infection Stated complaint: Ear Pain/Upper Respiratory Symptoms Time Seen by Provider: 07/15/25 13:10 Source: patient Mode of arrival: ambulatory Limitations: no limitations History of Present Illness HPI narrative: Patient is a 39-year-old male who presents with bilateral ear pain, congestion and drainage for 3 days. Denies any sore throat, cough, fever, chills, nausea, vomiting, diarrhea. Has not taken anything for symptoms. Related Data Home Medications ?Medication ?Instructions ?Recorded ?Confirmed ?Last Taken ?Type omeprazole 40 mg capsule,delayed 40 mg PO DAILY 07/15/25 Unknown History release omega 8-fnx-mzu-fish oil 1,000 mg 1 cap PO BID 5 07/15/25 Unknown History (120 mg-180 mg) capsule (Fish Oil) azelastine 137 mcg (0.1 %) nasal intranasal 07/15/25 Unknown History spray Allergies Allergy/AdvReac Type Severity Reaction Status Date / Time No Known Allergies Allergy Verified 07/15/25 13:09 Review of Systems Review of Systems: All systems reviewed & are unremarkable except as noted in HPI and below Constitutional: Constitutional: Denies chills, Denies fatigue, Denies fever(s), Denies headache(s), Denies malaise and Denies weakness Eyes: Eyes: Denies blurry vision, Denies itchy eyes and Denies loss of vision ENT: Reports otalgia, Denies headache(s), Reports nasal congestion, Denies sinus pain and Denies sore throat Cardiovascular: Cardiovascular: Denies chest pain, Denies irregular heart rhythm and Denies dyspnea Respiratory: Respiratory: Denies cough and Denies dyspnea Gastrointestinal: Gastrointestinal: Denies abdominal pain, Denies diarrhea, Denies nausea and Denies vomiting Musculoskeletal: Musculoskeletal: Denies back pain, Denies myalgias and Denies arthralgias Integumentary/Breasts: Skin/Breast: Denies pruritus and Denies rash Neurologic: Denies headache(s), Denies loss of vision and Denies weakness Psychiatric: Psychiatric: Reports no additional psychiatric complaints Endocrine: Endocrine: Denies fatigue Allergic/Immunologic: Allergic/Immunologic: Denies itchy eyes PMFSH Past Medical History Medical History Heavy drinker Paroxysmal supraventricular tachycardia Migraine Surgical History Surgical History History of elbow surgery History of hernia surgery History of hip surgery Family History Family History Other Hypertension Social History Social History Social History: Surrogate medical decision maker: Edilma Paniagua, spouse ([phone]). Code status: Full code. Smoking status: Former smoker Second hand tobacco smoke exposure: No Smoking end date: 08/04/21 Alcohol intake: current Drinks per week: 20 Alcohol use details: average of 15 drinks on both Friday and Friday nights Substance use: never Substance use type: does not use Lack of Transportation: No Lack of Food: Never True Current Housing: I Have Housing Concerned About Future Housing: No Difficulty Paying Gas/Electric Bills: No Difficulty Paying for Meds: No Currently Unemployed: No Education: Trade/Vocational Certificate Difficulty w/ Childcare or Family Care: No Living arrangements: with family Additional living arrangements comments: Lives with spouse and children in [place]. 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 Spiritual care concerns: No Agree to blood products: Yes Comments At time of signature, agree with nursing past medical, surgical, social and family history. There is no relevant family history pertinent to the presenting complaint. Exam Const: General: cooperative, healthy appearing, comfortable, no acute distress and well nourished Nutritional Appearance: well nourished Orientation/consciousness: patient oriented x3 Limitations: no limitations HENMT: Head: normal to inspection, normocephalic and atraumatic Ears: hearing grossly normal bilaterally, external ears normal, TM normal on the right, EAC's normal, no periauricular adenopathy and TM abnormal bulging on the left and erythematous on the left Face/Nose/Sinus: Normal external nose present, Abnormal mucous membranes and turbinates present erythematous bilateral and diffuse, normal facial exam, sinuses nontender and face symmetric Face and sinus: normal facial exam, sinuses nontender and face symmetric Mouth: Yes Normal oral and palatal mucosa present, Yes lip normal, Yes tongue normal, Yes Normal salivary glands and ducts present, Yes oropharynx normal and Yes moist mucous membranes Teeth and gingiva: dentition normal Throat: posterior oropharynx normal, tonsils normal and uvula midline Eyes: General: appearance normal, both eyes and all related structures Alignment and Position: alignment normal and position normal Periorbital: periorbital findings normal Eyelids: eyelids normal Pupils: Equal, round and reactive pupils present Neck: Neck: normal visual inspection, full ROM, no lymphadenopathy and supple Chest: Chest palpation & inspection: normal inspection of the chest and normal palpation of entire chest wall Resp: Effort & Inspection: normal respiratory effort and able to speak in complete sentences Auscultation: clear to auscultation bilaterally, no crackles, no rales, no rhonchi and no wheezes Cardio: Rate: regular rate Rhythm: regular rhythm Heart sounds: S1 normal heart sound present and S2 normal heart sound present GI: Inspection: normal to inspection Skin: General skin exam: normal color and no rashes or lesions noted Neuro: General: patient oriented x3 and moves all extremities Cranial nerves: Yes Equal, round and reactive pupils present Speech: normal speech Gait exam (Neuro): Normal gait present Extrem: General: normal to inspection, full ROM and no edema Psych: Appearance: grossly normal and well kempt Mental Status: mental status grossly normal Speech and movement: Normal speech and movement present Affect: normal affect Attitude: cooperative Thought process: Normal thought process present Course Course Emergency Course: Patient is aware of diagnosis, understands and agrees to treatment plan. Anticipatory guidance given. Patient agrees to follow-up as directed and is aware of reasons to seek care at the emergency department. Portions of this record may have been created with voice recognition software Level of Care: Express [facility] Visit Vital Signs Vital signs: Vital Signs Temperature 36.7 C 07/15/25 13:11 Pulse Rate 102 H 07/15/25 13:11 Respiratory Rate 20 07/15/25 13:11 Blood Pressure 147/102 H 07/15/25 13:11 Pulse Oximetry 97 07/15/25 13:11 Oxygen Delivery Room Air 07/15/25 13:11 Temperature 36.7 C 07/15/25 13:11 Pulse Rate 102 H 07/15/25 13:11 Respiratory Rate 20 07/15/25 13:11 Blood Pressure 147/102 H 07/15/25 13:11 Pulse Oximetry 97 07/15/25 13:11 Oxygen Delivery Room Air 07/15/25 13:11 [facility] Narrative Medical decision making narrative: exam consistent with otitis media. Will treat with antibiotics. will also give Tessalon Perles for cough Pt well hydrated appearing, in no respiratory distress, hemodynamically stable. Recommend supportive care. The patient is stable at time of discharge the clinical impression was discussed and the patient was given the opportunity to ask questions, which were addressed as completely as possible given the information available at present. Anticipatory guidance and return to care precautions were discussed and the importance of primary care follow-up was stressed and encouraged. The patient voiced understanding of the plan, indications to return, and the need for follow-up. Exam findings show no acute concerns or changes Patient is appropriate for outpatient treatment and follow-up. Differential Diagnosis Differential Diagnosis: Differential diagnosis considered: Barksdale virus, strep pharyngitis, allergic rhinitis, upper respiratory tract infection, sinusitis, rhinosinusitis, nasopharyngitis. viral pharyngitis, otitis media, otitis externa, otitis effusion, foreign body, cerumen impaction, viral syndrome, and influenza. Medical Records I have reviewed the following patient records and this information was taken into consideration when formulating the assessment and plan.: previous clinic visits Discharge Plan Discharge Clinical Impression: Otitis media Qualifiers: Otitis media type: suppurative Chronicity: acute Laterality: left Recurrence: non-recurrent Spontaneous tympanic membrane rupture: without spontaneous rupture Qualified Code(s): H66.002 - Acute suppurative otitis media without spontaneous rupture of ear drum, left ear Patient Disposition: Home Condition: Stable Instructions: Ear Infection (GEN) Additional Instructions: Take antibiotics as directed. Recommend antihistamine such as Benadryl at night time and Zyrtec or Krysta during the day until symptoms improve Flonase nasal spray, 1 spray in each nostril once daily until symptoms improve Also, recommend symptomatic treatment includes: rest, fluids, and increase humidity of the air at home. For pain, you may take: Tylenol 650-1000mg by mouth every 4-6 hours. Do not exceed 4000mg in 24 hours. Advil (Ibuprofen) 600 mg by mouth every 6 hours. Do not exceed 2400mg in 24 hours. 8 AM: Tylenol 11 AM: Ibuprofen 2 PM: Tylenol 5 PM: Ibuprofen 8 PM: Tylenol 11 PM: Ibuprofen 2 AM: Tylenol 5 AM: Ibuprofen Please schedule a follow-up visit with your personal physician for further evaluation and treatment within 3-5days. If your symptoms persist, change or worsen significantly before you can contact your personal physician then please, without delay, go to the emergency department for further evaluation. Your blood pressure was elevated above 120/80 today at Urgent Care. This puts you above the threshold for follow up visit with a primary care provider. High blood pressure does not usually cause any symptoms, however it may lead to kidney failure, stroke, heart disease just to name a few if untreated . Many people are anxious when seeing a provider or nurse. As a result, you are not diagnosed with hypertension at this time unless your blood pressure is persistently high at two office visits at least one week apart. Some things that can help lower blood pressure are lifestyle modifications, such as light exercise, decreased salt in diet, and weight loss. It is important to follow up with a PCP about this within 1 week. Patient Language: Bulgarian Prescriptions: New amoxicillin 875 mg tablet 875 mg PO Q12H 7 Days Qty: 14 0RF benzonatate 100 mg capsule 100 mg PO BID PRN (Reason: cough) Qty: 14 0RF No Action azelastine 137 mcg (0.1 %) spray,non-aerosol INTRANASAL omeprazole 40 mg capsule,delayed release(DR/EC) 40 mg PO DAILY diltiazem HCl [Cardizem CD] 180 mg capsule,extended release 24hr 180 mg PO DAILY Qty: 30 5RF omega 3-tnb-cbd-fish oil [Fish Oil] 1,000 (120-180) mg capsule 1 cap PO BID losartan 50 mg tablet See Rx Instructions .ROUTE .COMPLEX Qty: 30 5RF Dose Instruction: TAKE 1 TABLET BY MOUTH EVERY DAY Rx Instructions: TAKE 1 TABLET BY MOUTH EVERY DAY Follow-up/Referrals: Nathan Flores MD [Physician, Family Practice] - 3 Days Time of Disposition: 13:42
== END 2025-07-15 13:43 | disposition home or self-care (01) ==
PROVIDERS: Emergency Provider Nurse Practitioner Family
DX: H66.002 Acute suppurative otitis media without spontaneous rupture of ear drum, left ear (principal); Z87.891 Personal history of nicotine dependence
CPT/HCPCS: 99213; G0463